=== PATIENT | male | born 1990 | race Caucasian/White ===

== ENCOUNTER 2018-11-22 23:40 | Emergency (ER) | payer MEDICARE ==
[~2018-11-22] VITALS: Ht 193 cm; Wt 98.6 kg
[2018-11-22 23:41] VITALS: Ht 193 cm; Wt 98.6 kg
[2018-11-23 00:24] LABS: APPEARANCE CLEAR (CLEAR); BILIRUBIN NEGATIVE (NEGATIVE); COLOR STRAW (YELLOW); GLUCOSE NEGATIVE (NEGATIVE); KETONE NEGATIVE (NEGATIVE); NITRITE NEGATIVE (NEGATIVE); PROTEIN NEGATIVE (NEGATIVE); UROBILINOGEN NORMAL (NORMAL)
[2018-11-23 00:34] LABS: UDS - AMPHET NEGATIVE QUAL (NEGATIVE); UDS - BARB NEGATIVE QUAL (NEGATIVE); UDS - BENZO NEGATIVE QUAL (NEGATIVE); UDS - COCAINE NEGATIVE QUAL (NEGATIVE); UDS - OPIATE NEGATIVE QUAL (NEGATIVE); UDS - PCP NEGATIVE QUAL (NEGATIVE); UDS - THC NEGATIVE QUAL (NEGATIVE)
[2018-11-23 00:40] LABS: BASOPHILS 0.6 % (0-2); EOSINOPHILS 4.9 % (0-7); HEMATOCRIT 40.8 % (42.0-54.0); LYMPHOCYTES 29.8 % (15-50); MCH 30.6 pg (26.0-34.0); MCHC 34.3 g/dL (31.0-37.0); MCV 89.1 fL (80.0-100.0); MEAN PLATELET VOLUME 9.1 fL (7.4-10.4); MONOCYTES 8.5 % (2-11); NEUTROPHILS 56.2 % (40-80); PLATELET COUNT 202 10x3/uL (130-400); RBC 4.58 10x6/uL (4.20-6.10); RDW 12.6 % (11.5-14.5); WBC 4.9 10x3/uL (4.8-10.8)
[2018-11-23 00:48] LABS: ALBUMIN 3.7 g/dL (3.4-5.0); ALKALINE PHOSPHATASE 87 U/L (46-116); ALT (SGPT) 26 U/L (10-68); BILIRUBIN - TOTAL 0.64 mg/dL (0.2-1.3); CALC OSMOLALITY 284 mosm/kg (275-300); CALCIUM 8.9 mg/dL (8.5-10.1); CARBON DIOXIDE 28.2 mmol/L (21.0-32.0); CHLORIDE - SERUM 105 mmol/L (98-107); GLUCOSE 99 mg/dL (74-106); POTASSIUM - SERUM 3.9 mmol/L (3.5-5.1); PROTEIN - SERUM 6.7 g/dL (6.4-8.2); SODIUM 143 mmol/L (136-145); UREA NITROGEN 13 mg/dL (7-18); eGFR NON AFRICAN AMERICAN > 90 mL/min (90-120)
[2018-11-23 01:00] LABS: CKMB 2.2 U/L (0.0-3.6); CREATINE KINASE 131 UL (21-232); PRO BNP 24 pg/mL (0-125); THYROID STIMULATING HORMONE 27.28 uIU/mL (0.36-3.74)
[2018-11-23 01:01] LABS: TROPONIN-I < 0.017 ng/mL (0.000-0.060)
[2018-11-23] MEDS ORDERED: SYNTHROID50 MCG PO (01:11)
[2018-11-23 02:06] VITALS: BP 128/70
== END 2018-11-23 02:06 | disposition home or self-care (01) ==
LOC: D.ER 23:40
PROVIDERS: Family Medicine
DX: E03.9 Hypothyroidism, unspecified (principal); R42 Dizziness and giddiness; R53.83 Other fatigue; M54.6 Pain in thoracic spine

== ENCOUNTER 2019-04-03 08:45 | Emergency (ER) | payer MEDICARE ==
[~2019-04-03] VITALS: Ht 193 cm; Wt 98.6 kg
[~2019-04-03 08:45] MED LIST: SYNTHROID50 MCG PO
[2019-04-03] MEDS ORDERED: CELEXA20 MG PO (08:59)
== END 2019-04-03 10:58 | disposition home or self-care (01) ==
LOC: D.ER 08:45
DX: R07.9 Chest pain, unspecified (principal)

== ENCOUNTER 2019-09-06 06:43 | Emergency (ER) | payer MEDICARE ==
[~2019-09-06] VITALS: Ht 193 cm; Wt 100.0 kg
[~2019-09-06 06:43] MED LIST changes: +CELEXA20 MG PO
[2019-09-06 06:47] VITALS: Ht 193 cm; Wt 100.0 kg
[2019-09-06] MEDS ORDERED: LEXAPRO20 MG PO (06:49)
[2019-09-06] MEDS ORDERED: DICLOFENAC SODI50 MG PO (06:54)
[2019-09-06 08:09] VITALS: BP 130/75
== END 2019-09-06 07:58 | disposition home or self-care (01) ==
LOC: D.ER 06:43
DX: M25.512 Pain in left shoulder (principal)